=== PATIENT | male | born 1930 | race Caucasian/White ===

== ENCOUNTER → 2016-05-04 | Outpatient (CLI) | payer MEDICARE ==
[2016-05-04 16:00] LABS: MEAN CORPUSCULAR HEMOGLOBIN 23.8 PG (26.0-34.0)
[2016-05-04 16:01] LABS: MEAN CORPUSCULAR VOLUME 75 FL (80-100)
[2016-05-04 16:06] LABS: MEAN CORPUSCULAR HGB CONC 31.8 g/dL (31.0-37.0); PLATELET COUNT 263 10^3uL (150-450)
[2016-05-04 16:07] LABS: BASOPHILS % (AUTO) 1 % (0-2); EOSINOPHILS % (AUTO) 3 % (0-4); MEAN PLATELET VOLUME 9.7 FL (6.0-9.5); MONOCYTES % (AUTO) 13 % (3-11); NEUTROPHILS % (AUTO) 52 % (51-67)
[2016-05-04 16:08] LABS: EOSINOPHILS # (AUTO) 0.2 10^3uL; MONOCYTES # (AUTO) 0.9 X10^3; NEUTROPHILS # (AUTO) 3.3 X10^3
[2016-05-04 16:11] LABS: ABSOLUTE RETIC # 64 10^3uL (22-82)
[2016-05-04 21:58] LABS: IRON 37 ug/dL (65-175); UNBOUND IRON CONTENT 374 ug/dl (126-382)
== END ==
LOC: LAB 15:27
PROVIDERS: ATTEND Family Medicine
DX: D50.8 Other iron deficiency anemias (principal)
CPT/HCPCS: 36415; 82728; 83540; 83550; 85025; 85045

== ENCOUNTER → 2016-08-26 | Outpatient (CLI) | payer MEDICARE ==
[~2016-08-26] MED LIST: ALLO100T PO; ASPI-860 PO; CALTRATE PO; CEPH-507 PO; DONE10TA5 PO; FNST5T PO; FOLI1TAB6 PO; OMEP20CA12 PO; OXAP600T2 PO; SIMV80TA3 PO; [UNRECOGNIZED DRUG - CODE] PO; [UNRECOGNIZED DRUG - OTHER] PO
[2016-08-26 13:11] LABS: MEAN PLATELET VOLUME 9.7 FL (6.0-9.5); PLATELET COUNT 262 10^3uL (150-450); WHITE BLOOD COUNT 6.06 10^3uL (4.0-11.0)
[2016-08-26 13:14] LABS: MEAN CORPUSCULAR HEMOGLOBIN 23.7 PG (26.0-34.0); MEAN CORPUSCULAR HGB CONC 31.4 g/dL (31.0-37.0); MEAN CORPUSCULAR VOLUME 76 FL (80-100)
[2016-08-26 13:18] LABS: ANION GAP 14.8 MEQ/L (3-15)
[2016-08-26 13:46] LABS: ANISOCYTOSIS SLIGHT; BAND NEUTROPHILS % 1 % (0-6); EOSINOPHILS % 4 % (0-4); MONOCYTES # 0.8 #; MONOCYTES % 13 % (3-11); RBC MORPH SEE REFERENCE (NORMAL); SEGMENTED NEUTROPHILS % 47 % (51-67); TOTAL CELLS COUNTED 100
== END ==
LOC: LAB 11:38
PROVIDERS: ATTEND Family Medicine
DX: D50.8 Other iron deficiency anemias (principal); M10.00 Idiopathic gout, unspecified site
CPT/HCPCS: 36415; 80048; 84550; 85025